=== PATIENT | female | born 1965 | race American Indian/Alaskan Native ===

== ENCOUNTER 2017-03-19 11:15 | Emergency (ER) | payer OTHER ==
[~2017-03-19 11:15] MED LIST: NACL 0.9% 500 ML 500 ML ONE
[2017-03-19] MEDS ORDERED: NACL 0.9% 1000 ML 1,000 ML ONE (11:19)
[2017-03-19] MEDS ORDERED: NACL 0.9% 500 ML 500 ML IV ONE (11:28)
--- NOTE | 2017-03-19 11:29 | Emergency Department Report ---
ED General Adult HPI - General Chief complaint: Arrhythmia/Palpitations Stated complaint: SVT Time Seen by Provider: 03/19/17 11:26 Source: patient, EMS (verbal report received from EMS.ems notes not available at time of chart dictation), RN notes reviewed - History of Present Illness Initial comments: This is a 51-year-old female. She is previously unknown to me. She reports a history of arrhythmia (thinks that it is SVT but is not certain), stroke. She is brought to the hospital by EMS for unprovoked arrhythmia. Patient complains of palpitations and generalized weakness. This is painless. There is no chest pain. There is no shortness of breath. There is no leg pain. There is no leg swelling. No recent trips greater than 4 hours. No recent hospitalizations. Complains of mild headache. The headache is not sudden or thunderclap in nature. It is not the worse headache of her life. Did not response one tensely within an hour. There is no irritative or obstructive urinary symptoms. No cough. The patient presented in SVT, with a rate of 186 bpm. EMS indicated that vagal maneuvers failed in the field. Vagal maneuvers were attempted in the ER. They also failed An EKG going 25 mm/s confirmed SVT, and repeat EKG going at 50 mm/s also confirmed SVT. Patient had a large bore IV placed in the left antecubital fossa, was given 6 mg of adenosine as a fast IV push, and the patient spontaneously converted to sinus rhythm. -: Sudden Consistency: constant Improves with: medication Associated Symptoms: malaise - Related Data Previous Rx's Medication Instructions Recorded Last Taken Type Metoprolol [Lopressor TAB] 25 mg PO BID #60 tablet 03/19/17 Unknown Rx Allergies Allergy/AdvReac Type Severity Reaction Status Date / Time No Known Allergies Allergy Unverified 03/19/17 11:33 ED Review of Systems ROS: Stated complaint: SVT Other details as noted in HPI Constitutional: denies: fever Eyes: denies: vision change ENT: denies: epistaxis Respiratory: see HPI Cardiovascular: palpitations Gastrointestinal: denies: vomiting Genitourinary: denies: urgency, dysuria, discharge Musculoskeletal: denies: back pain, joint swelling, arthralgia Skin: denies: lesions Neurological: headache Psychiatric: as per HPI ED Past Medical Hx - Medications Home Medications: Home Medications Medication Instructions Recorded Confirmed Last Taken Type Metoprolol [Lopressor TAB] 25 mg PO BID #60 tablet 03/19/17 Unknown Rx ED Physical Exam - General General appearance: alert, in no apparent distress - Head Head exam: Present: atraumatic, normocephalic - Eye Eye exam: Present: normal appearance, EOMI. Absent: nystagmus - ENT ENT exam: Present: normal exam, normal orophraynx, mucous membranes moist, normal external ear exam - Neck Neck exam: Present: normal inspection, full ROM. Absent: tenderness, meningismus - Respiratory Respiratory exam: Present: normal lung sounds bilaterally. Absent: respiratory distress, wheezes, rales, rhonchi, stridor, chest wall tenderness, accessory muscle use, decreased breath sounds, prolonged expiratory - Cardiovascular Cardiovascular Exam: Present: tachycardia. Absent: systolic murmur, diastolic murmur, rubs, gallop - GI/Abdominal GI/Abdominal exam: Present: soft, normal bowel sounds. Absent: distended, tenderness, guarding, rebound, rigid, pulsatile mass - Extremities Exam Extremities exam: Present: normal inspection, full ROM, normal capillary refill. Absent: tenderness, pedal edema, joint swelling, calf tenderness - Back Exam Back exam: Present: normal inspection, full ROM. Absent: tenderness, CVA tenderness (R), CVA tenderness (L), muscle spasm, paraspinal tenderness, vertebral tenderness - Neurological Exam Neurological exam: Present: alert, oriented X3, other (Extraocular movements intact. Tongue midline. No facial droop. Facial sensation intact to light touch in the V1, V2, V3 distribution bilaterally. 5 and 5 strength in 4 extremities.. Sensation is intact to light touch in 4 extremities.). Absent: motor sensory deficit - Psychiatric Psychiatric exam: Present: anxious - Skin Skin exam: Present: warm, dry, intact, normal color. Absent: rash ED Course Vital Signs 03/19/17 03/19/17 03/19/17 11:12 11:16 11:20 Temperature 97.6 F Pulse Rate 186 H 190 H 105 H Respiratory 14 16 Rate Blood Pressure 128/100 128/100 Blood Pressure [Right] O2 Sat by Pulse 100 100 97 Oximetry 03/19/17 03/19/17 03/19/17 11:29 11:30 11:40 Temperature 97.6 F Pulse Rate 92 H 81 80 Respiratory 20 15 11 L Rate Blood Pressure 125/86 130/86 Blood Pressure 130/86 [Right] O2 Sat by Pulse 100 96 99 Oximetry 03/19/17 03/19/17 03/19/17 11:50 12:00 12:10 Temperature Pulse Rate 85 83 82 Respiratory 11 L 16 14 Rate Blood Pressure 130/86 115/79 115/79 Blood Pressure [Right] O2 Sat by Pulse 100 100 Oximetry 03/19/17 03/19/17 03/19/17 12:20 12:30 12:40 Temperature Pulse Rate 79 73 76 Respiratory 11 L 15 14 Rate Blood Pressure 131/90 128/92 128/92 Blood Pressure [Right] O2 Sat by Pulse 98 99 99 Oximetry 03/19/17 03/19/17 03/19/17 12:50 13:00 13:10 Temperature Pulse Rate 97 H 73 75 Respiratory 14 14 15 Rate Blood Pressure 121/88 129/90 129/90 Blood Pressure [Right] O2 Sat by Pulse 100 99 99 Oximetry 03/19/17 03/19/17 03/19/17 13:20 13:30 13:40 Temperature Pulse Rate 75 77 83 Respiratory 18 15 15 Rate Blood Pressure 126/89 126/86 126/86 Blood Pressure [Right] O2 Sat by Pulse 98 98 97 Oximetry 03/19/17 14:02 Temperature Pulse Rate 86 Respiratory 16 Rate Blood Pressure Blood Pressure 126/86 [Right] O2 Sat by Pulse 100 Oximetry - Reevaluation(s) Reevaluation #1: 03/19/17 11:34 Differential diagnosis: Arrhythmia, anemia, electrolyte derangement, thyroid derangement, urinary tract infection, SVT, pneumonia Assessment and plan: 51-year-old female with unprovoked SVT, now back in sinus, with no complaints, hemodynamically stable. Chest pain-free. I don't believe the patient requires acute coronary syndrome risk stratification. We will exclude UTI, pneumonia, anemia, electrolyte derangement. We will discuss with cardiology. Reevaluation #2: 03/19/17 13:05 Patient reassess. Vital signs stable. She is resting comfortably. Chest x- ray negative. Urinalysis negative. She will be discharged with metoprolol, 25 mg twice daily. She is instructed to contact cardiology at [phone]. This is discussed with cardiology nurse practitioner, Jessica Watson, who agrees this plan of care. Reevaluation #3: 03/19/17 13:10 Patient reports that her only blood pressure medication is Norvasc, 2.5 mg daily. She does not have any history of COPD or reactive airway disease. ED Medical Decision Making - Lab Data Result diagrams: 03/19/17 11:45 03/19/17 11:45 Vital Signs 03/19/17 03/19/17 03/19/17 11:12 11:16 11:20 Temperature 97.6 F Pulse Rate 186 H 190 H 105 H Respiratory 14 16 Rate Blood Pressure 128/100 128/100 Blood Pressure [Right] O2 Sat by Pulse 100 100 97 Oximetry 03/19/17 03/19/17 11:29 11:30 Temperature 97.6 F Pulse Rate 92 H 81 Respiratory 20 15 Rate Blood Pressure 125/86 Blood Pressure 130/86 [Right] O2 Sat by Pulse 100 96 Oximetry Lab Results 03/19/17 03/19/17 03/19/17 Range/Units 11:45 11:45 11:45 WBC 7.9 (4.5-11.0) K/mm3 RBC 4.88 (3.65-5.03) M/mm3 Hgb 13.1 (10.1-14.3) gm/dl Hct 40.4 (30.3-42.9) % MCV 83 (79-97) fl MCH 27 L (28-32) pg MCHC 32 (30-34) % RDW 14.4 (13.2-15.2) % Plt Count 211 (140-440) K/mm3 PT 12.2 (12.2-14.9) Sec. INR 0.91 (0.87-1.13) Sodium 138 (137-145) mmol/L Potassium 3.8 (3.6-5.0) mmol/L Chloride 102.1 (98-107) mmol/L Carbon Dioxide 22 (22-30) mmol/L Anion Gap 18 mmol/L BUN 19 H (7-17) mg/dL Creatinine 0.6 L (0.7-1.2) mg/dL Estimated GFR > 60 ml/min BUN/Creatinine Ratio 31.66 % Glucose 110 H (65-100) mg/dL Calcium 9.4 (8.4-10.2) mg/dL Magnesium 1.80 (1.7-2.3) mg/dL TSH (0.270-4.200) mlU/mL Urine Color (Yellow) Urine Turbidity (Clear) Urine pH (5.0-7.0) Ur Specific Lincoln (1.003-1.030) Urine Protein (Negative) mg/dL Urine Glucose (UA) (Negative) mg/dL Urine Ketones (Negative) mg/dL Urine Blood (Negative) Urine Nitrite (Negative) Urine Bilirubin (Negative) Urine Urobilinogen (<2.0) mg/dL Ur Leukocyte Esterase (Negative) Urine WBC (Auto) (0.0-6.0) /HPF Urine RBC (Auto) (0.0-6.0) /HPF U Epithel Cells (Auto) (0-13.0) /HPF Urine Mucus /HPF 03/19/17 03/19/17 Range/Units 11:45 11:59 WBC (4.5-11.0) K/mm3 RBC (3.65-5.03) M/mm3 Hgb (10.1-14.3) gm/dl Hct (30.3-42.9) % MCV (79-97) fl MCH (28-32) pg MCHC (30-34) % RDW (13.2-15.2) % Plt Count (140-440) K/mm3 PT (12.2-14.9) Sec. INR (0.87-1.13) Sodium (137-145) mmol/L Potassium (3.6-5.0) mmol/L Chloride (98-107) mmol/L Carbon Dioxide (22-30) mmol/L Anion Gap mmol/L BUN (7-17) mg/dL Creatinine (0.7-1.2) mg/dL Estimated GFR ml/min BUN/Creatinine Ratio % Glucose (65-100) mg/dL Calcium (8.4-10.2) mg/dL Magnesium (1.7-2.3) mg/dL TSH 0.798 (0.270-4.200) mlU/mL Urine Color Colorless (Yellow) Urine Turbidity Clear (Clear) Urine pH 6.0 (5.0-7.0) Ur Specific [place] 1.004 (1.003-1.030) Urine Protein <15 mg/dl (Negative) mg/dL Urine Glucose (UA) Neg (Negative) mg/dL Urine Ketones Neg (Negative) mg/dL Urine Blood Neg (Negative) Urine Nitrite Neg (Negative) Urine Bilirubin Neg (Negative) Urine Urobilinogen < 2.0 (<2.0) mg/dL Ur Leukocyte Esterase Neg (Negative) Urine WBC (Auto) 1.0 (0.0-6.0) /HPF Urine RBC (Auto) 2.0 (0.0-6.0) /HPF U Epithel Cells (Auto) < 1.0 (0-13.0) /HPF Urine Mucus Few /HPF - EKG Data -: EKG Interpreted by Fl - EKG Data 03/19/17 11:36 EKG #1, 25 mm/s, SVT, 186 bpm, normal axis, QTC 440 ms, nonspecific ST depression, not consistent with STEMI. EKG #2:186 bpm, normal axis, normal intervals, SVT, LVH, not consistent with STEMI. EKG #3: Normal sinus, 87 beats per minute, normal intervals, normal axis, left ventricular hypertrophy, incomplete right bundle-branch block, borderline atrial enlargement, not consistent with STEMI. - Radiology Data Radiology results: pending, report reviewed, image reviewed X-ray of the chest is negative for acute disease Critical Care Time: Yes Critical care time in (mins) excluding proc time.: 35 Critical care attestation.: If time is entered above; I have spent that time in minutes in the direct care of this critically ill patient, excluding procedure time. Critical Care Time: Critical care time includes multiple bedside evaluations, interpretation of laboratory studies, radiology studies, time spent managing a patient with arrhythmia requiring IV adenosine, constant cardiac monitoring. This does not include procedure time. ED Disposition Clinical Impression: Arrhythmia Disposition: DISCHARGED TO HOME OR SELFCARE Is pt being admited?: No Does the pt Need Aspirin: No Condition: Stable Instructions: Supraventricular Tachycardia (ED), Palpitations (ED) Additional Instructions: Laboratory studies, chest x-ray were unremarkable. Symptoms most likely coming from supraventricular tachycardia, which is typically a benign condition. Take the medications as directed. Follow up with any of the listed e business specialist within the next week. you may contact the cardiology office at [phone]. Avoid consumption of caffeinated substances, and stimulants. Return to the ER right away with chest pain, shortness of breath, fevers or chills, nausea or vomiting, inability to tolerate liquid feeds. Side affects of the listed medication may be dizziness, lightheadedness. Initiated the metoprolol medication, discontinue the Norvasc, 2.5 mg daily, unless specifically instructed by cardiology or primary care doctor to resume this medicine. Prescriptions: Metoprolol [Lopressor TAB] 25 mg PO BID #60 tablet Referrals: PRIMARY CARE, [Primary Care Provider] - 3-5 Days RAYA MEJIA MD [Staff Physician] - 3-5 Days SHOLA MEJIA MD [Staff Physician] - 3-5 Days Forms: Work/School Release Form(ED)
--- NOTE | 2017-03-19 12:04 | XRay Report ---
PORTABLE CHEST INDICATION: Dyspnea, SVT. COMPARISON: None similar at this institution. FINDINGS: Portable, frontal chest radiograph demonstrates normal cardiomediastinal silhouette. Clear, well-expanded lungs. EKG lead. Intact bones. CONCLUSION: No acute disease. Thank you for the opportunity to participate in this patient's care.
--- NOTE | 2017-03-19 12:10 | Admit Criteria Form ---
Admission Criteria Documentation: TELEMETRY CARE Telemetry Admission Guidelines (Place 'X' for any and all applicable criteria): Admission to telemetry [A] may be indicated for ANY ONE of the following(1)(2)(3 )(4)(5): [ ]I. Cardiac disease, including ANY ONE of the following (9)(10)(11)(12)(13 ): [ ]a) Postacute CO [ ]b) Low-risk patients with ST-segment elevation CO who have undergone successful percutaneous coronary intervention [ ]c) Unstable angina [ ]d) Suspected CO (until it is ruled out) [ ]e) Post cardiac surgery (first 48 to 72 hours unless complications occur) [ ]f) Acute arrhythmias (including significant tachycardia or bradycardia) [B] [ ]g) Firing of an implantable cardioverter defibrillator [C] [ ]h) Suspected pacemaker or implantable cardioverter defibrillator malfunction (10) [ ]i) New administration or adjustment of an antiarrhythmic drug [D ] [ ]j) Child admitted for acute congestive heart failure [ ]j) Long QT syndrome [ ]k) Advanced heart block (eg, second-degree Mobitz type II, third- degree heart block) [ ]l) Acute myocarditis or pericarditis [ ]m) Short-term (ambulatory or inpatient) monitoring after a cardiac procedure as indicated by ANY ONE of the following [E]: [ ]i) Electrophysiologic studies [ ]ii) Percutaneous coronary intervention with stent placement [ ]iii) Pacemaker placement with cardiac conduction defect [ ]iv) Implantable cardiac defibrillator placement [ ]II. Drug overdose or poisoning with substance that causes arrhythmias or QT prolongation (eg, phenothiazines, sympathomimetic agents, cyclic antidepressants, digitalis, antiarrhythmic drugs)(15) [ ]III. Short-term (ambulatory or inpatient) monitoring after therapeutic or diagnostic procedure requiring conscious sedation or anesthesia (eg, endoscopy, elective cardioversion) [ ]IV. Acute cerebrovascular even[F](18) [ ]V. Massive blood transfusion (eg, at least 10 units of packed red blood cells in 24 hours) [ ]. Variceal bleeding after endoscopy, sclerotherapy, or IV vasopressin [ ]VII. Uncorrected electrolyte abnormalities associated with an increased risk of dangerous arrhythmia [G]; examples include [ ]a) Hyperkalemia with attributable ECG changes [ ]b) Potassium greater than 6.5 mmol/L (mEq/L) in a patient without history of chronic renal disease [ ]c) Prolonged QT attributed to hypokalemia, hypomagnesemia, or hypocalcemia [ ]VIII.Unexplained syncope or other neurologic event suspected of being due to arrhythmia due to a finding that increases risk; examples include(19)(20)(21): [ ]a) High-risk ECG findings (eg, bifascicular block, bradycardia, abnormal QT interval, ventricular pre- excitation) [ ]b) History of previous syncope due to arrhythmia [ ]c) Abnormal ventricular function (eg, reduced ejection fraction ) [ ]d) Exertional or supine syncope [ ]e) Concerning syncope characteristics (eg, sudden loss of consciousness without prodrome) [ ]f) Family history of sudden [ ]g) Use of arrhythmogenic medication [ ]h) Suspected cardiac ischemia [ ]i) Known channelopathy (eg, long QT syndrome, Brugada syndrome, or catecholaminergic paroxysmal ventricular tachycardia) [ ]j) Known structural heart disease (eg, hypertrophic cardiomyopathy , severe valvular disease) [ ]k) Palpitations preceding syncope The original [employer] content created by [employer] has been revised. The portions of the content which have been revised are identified through the use of italic text or in bold, and [employer] has neither reviewed nor approved the modified material. All other unmodified content is copyright [employer]. Please see references footnoted in the original [employer] edition 2016
[2017-03-19 12:17] LABS: Hematocrit 40.4 % (30.3-42.9); Hemoglobin 13.1 gm/dl (10.1-14.3); Mean Corpuscular HGB Conc 32 % (30-34); Mean Corpuscular Hemoglobin 27 pg (28-32); Mean Corpuscular Volume 83 fl (79-97); Platelet Count 211 K/mm3 (140-440); Red Blood Count 4.88 M/mm3 (3.65-5.03); Red Cell Distribution Width 14.4 % (13.2-15.2); White Blood Count 7.9 K/mm3 (4.5-11.0)
[2017-03-19 12:21] LABS: Anion Gap 18 mmol/L; BUN/Creatinine Ratio 31.66; Blood Urea Nitrogen 19 mg/dL (7-17); Calcium 9.4 mg/dL (8.4-10.2); Carbon Dioxide 22 mmol/L (22-30); Chloride 102.1 mmol/L (98-107); Glucose 110 mg/dL (65-100); Potassium 3.8 mmol/L (3.6-5.0); Sodium 138 mmol/L (137-145)
[2017-03-19 12:27] LABS: INR 0.91 (0.87-1.13)
[2017-03-19 12:41] LABS: Bilirubin,Urine NEG (Negative); Blood,Urine NEG (Negative); Ketones,Urine NEG (Negative); Leukocyte Esterase,Urine NEG (Negative); Mucus,Urine FEW /HPF; Nitrite,Urine NEG (Negative); Protein,Urine <15 mg/dL mg/dL (Negative); Urobilinogen,Urine < 2.0 mg/dL (<2.0)
[2017-03-19 14:01] VITALS: BP 126/86
== END 2017-03-19 14:04 | disposition home or self-care (01) ==
LOC: ED 11:15
DX: I49.9 Cardiac arrhythmia, unspecified (principal)
CPT/HCPCS: 36415; 71010; 80048; 81001; 83735; 84443; 85027; 85610; 93005; 93010; 96374; 99291; J0153; J7030; J7040